=== PATIENT | female | born 1950 | race Caucasian/White ===

== ENCOUNTER 2017-11-20 22:53 | Inpatient (IN) | payer MEDICARE, MEDICAID ==
[~2017-11-20] VITALS: Ht 157.5 cm; Wt 66.2 kg
--- NOTE | 2017-11-20 22:55 | NUR ---
[facility], NEIGHBORS CALLED 911, SAW PT SITTING OUTSIDE IN COLD DENIES ANY MEDICAL COMPLAINTS, BG 111 IN FIELD, NAD NOTED, VSS, RESP EVEN AND UNLABORED, SKIN WARM AND DRY, PT PUT ON MONITOR. AT FOR RENAE.
--- NOTE | 2017-11-20 23:28 | NUR ---
PT TO CTSCAN
[2017-11-20 23:32] LABS: BASOPHILS % (AUTO) 0.3 % (0.0-2.0); EOSINOPHILS # (AUTO) 0.1 /CMM (0.0-0.7); HEMATOCRIT 46 % (33-45); HEMOGLOBIN 14.6 g/dL (11.5-14.8); LYMPHOCYTES # (AUTO) 2.2 /CMM (0.8-4.8); MEAN CORPUSCULAR HEMOGLOBIN 26 PG (26.0-33.0); MEAN CORPUSCULAR HGB CONC 32 g/dl (31.0-36.0); MEAN CORPUSCULAR VOLUME 83 fL (82-100); MONOCYTES # (AUTO) 0.6 /CMM (0.1-1.30); MONOCYTES % (AUTO) 5.8 % (2.0-12.0); NEUTROPHILS # (AUTO) 7.7 /CMM (1.8-8.9); NEUTROPHILS % (AUTO) 71.9 % (43.0-81.0); PLATELET COUNT (AUTO) 225 /CMM (150-450); RDW COEFFICIENT OF VARIATION 16.8 (11.5-15.0); RED BLOOD CELL COUNT(AUTO) 5.52 MIL/uL (4.0-5.2); WHITE BLOOD COUNT (AUTO) 10.6 K/uL (4.3-11.0)
[2017-11-20 23:44] LABS: CARBON DIOXIDE 29 mmol/L (21-32); CHLORIDE 100 mmol/L (98-107); CREATININE 1.2 mg/dL (0.6-1.3); GLUCOSE 116 mg/dL (74-106); POTASSIUM 4.5 mmol/L (3.5-5.1); SODIUM SERUM 135 mmol/L (136-145); UREA NITROGEN, BLOOD 17 mg/dL (7-18)
--- NOTE | 2017-11-20 23:45 | NUR ---
JAMMIE ALEXANDER [phone], NEIGHBOR CALLED INQUIRING ON PT STATUS. PER PT REQUEST, UPDATE PT NEIGHBOR ON STATUS.
[2017-11-20 23:50] LABS: ACETAMINOPHEN 0 ug/ml (10-30); ALANINE AMINOTRANSFERASE 39 U/L (12-78); ALCOHOL, BLOOD < 3 mg/dL (0-0); ALKALINE PHOSPHATASE 102 U/L (46-116); ASPARTATE AMINOTRANSFERASE 25 U/L (15-37); BILIRUBIN,DIRECT 0.1 mg/dL (0.0-0.2); BILIRUBIN,TOTAL 0.6 mg/dL (0.2-1.0); TOTAL PROTEIN, SERUM 7.5 g/dL (6.4-8.2)
[2017-11-20 23:54] LABS: TROPONIN I < 0.017 ng/mL (0.00-0.056)
--- NOTE | 2017-11-21 00:21 | NUR ---
CALLED RADIOLOGY AND SPOKE WITH DAVI; ASKED TO GET PT FOR CT CHEST STUDY
[2017-11-21 00:25] LABS: APPEARANCE,URINE CLEAR (CLEAR); BILIRUBIN,URINE NEGATIVE (NEGATIVE); BLOOD, URINE NEGATIVE Ery/uL (NEGATIVE); COLOR,URINE YELLOW (YELLOW); KETONES,URINE NEGATIVE (NEGATIVE); LEUKOCYTE ESTERASE ,URINE NEGATIVE (NEGATIVE); NITRITE, URINE NEGATIVE (NEGATIVE); PH,URINE 5.5 (5.0-8.0); PROTEIN,URINE NEGATIVE (NEGATIVE); UGLUCOSE NEGATIVE (NEGATIVE); UROBILINOGEN,URINE 0.2 EU/dL (0.2)
[2017-11-21] MEDS ORDERED: IOHEXOL-300 100 ML VIAL IV ONE (00:29)
[2017-11-21] MEDS ORDERED: CT SWABBABLE VALVE TRANS SET 1 EA INFUS.SET MC ONE (00:30)
[2017-11-21] MEDS ORDERED: IV NS 0.9% 250 ML IV ONE (00:30)
--- NOTE | 2017-11-21 02:16 | NUR ---
pt asleep, no acute distress noted, resp even and unlabored. call light wihtin reach. will continue to monitor pt closely.
--- NOTE | 2017-11-21 02:25 | NUR ---
pt confused at this time.
--- NOTE | 2017-11-21 02:25 | NUR ---
pt agitated, screaming, uncooperative, er md made aware.
[2017-11-21] MEDS ORDERED: OLANZAPINE 10 MG VIAL IM ONE ×2 (02:28→02:30)
--- NOTE | 2017-11-21 02:31 | NUR ---
pt medicated as ordered.
--- NOTE | 2017-11-21 02:35 | NUR ---
ART CALLED FOR EVAL.
--- NOTE | 2017-11-21 03:28 | NUR ---
ERASTO HARPERW AT BEDSIDE TO RENAE VOSS.
--- NOTE | 2017-11-21 03:29 | NUR ---
PT CONSTALY SCREAMING, PT HALUCINATING, PT CONFUSED. ER MD MADE AWARE WITH ORDERS RECEIVED.
[2017-11-21] MEDS ORDERED: LORAZEPAM INJ 2 MG/ML VIAL ONE (03:30)
[2017-11-21] MEDS ORDERED: LORAZEPAM INJ 2 MG/ML VIAL IV ONE (03:30)
--- NOTE | 2017-11-21 03:34 | NUR ---
PT MEDICATED BY RN PER ER MD ORDER.
--- NOTE | 2017-11-21 04:12 | NUR ---
REPORT CALLED TO HARI CABAN. WILL TRANSPORT PT.
--- NOTE | 2017-11-21 04:45 | NUR ---
IV removed. Catheter intact and site benign. Pressure and 4x4 applied to site. No bleeding noted.
[2017-11-21 05:00] VITALS: BP_SYST 124; BP_SYST 127; BP_DIAS 81
[2017-11-21] MEDS ORDERED: MAG HYDROX/AL HYDROX/SIMETH 30 ML UDC PO PRN (05:30)
[2017-11-21] MEDS ORDERED: ACETAMINOPHEN 325 MG TABLET PO PRN (05:30)
[2017-11-21] MEDS ORDERED: MAGNESIUM HYDROXIDE 30 ML UDC PO PRN (05:30)
[2017-11-21 08:00] VITALS: BP 110/60
[2017-11-21 08:10] VITALS: BP 110/60
[2017-11-21] MEDS ORDERED: LISI10TA5 PO (09:35)
[2017-11-21] MEDS ORDERED: TRAM50TA2 PO (09:35)
[2017-11-21] MEDS ORDERED: TIZA2TAB4 PO (09:35)
[2017-11-21] MEDS ORDERED: ATOR10TA PO (09:35)
[2017-11-21] MEDS ORDERED: CHOL100044 PO (09:35)
[2017-11-21] MEDS ORDERED: BECL8.7A6 IH (09:35)
[2017-11-21] MEDS ORDERED: OMEP40CA37 PO (09:35)
[2017-11-21] MEDS ORDERED: DULO60CA45 PO (09:35)
[2017-11-21] MEDS ORDERED: HYDR-548 PO (09:35)
--- NOTE | 2017-11-21 10:55 | NUR ---
Initial Discharge Plan: Patient [place] alone [place] [address] [place] [address] / [phone]. Patient lives alone and wants to return there after discharge. SW discussed alternative placement with patient, but she did not wish to engage in that conversation. SW to follow up with MD and to facilitate a safe and proper discharge. Addendum: 11/21/17 at 1056 by RAHEEM BURGOS Please note that upon assessment, patient denied suicidal and homicidal ideation. Patient reported that she is not experiencing visual or auditory hallucinations.
[2017-11-21] MEDS ORDERED: TRAMADOL HCL 50 MG TABLET PO PRN (14:00)
[2017-11-21 16:07] VITALS: BP 123/86
[2017-11-21] MEDS ORDERED: BECLOMETHASONE DIPROPIONATE INH SCH (17:00)
[2017-11-21] MEDS: clonazePAM 0.5 MG TABLET PO PRN ×2 (17:28→23:18)
--- NOTE | 2017-11-21 17:28 | NUR ---
RN NOTES ADMINISTERED KLONOPIN 0.5 MG PO PRN FOR ANXIETY, PARANOIA, V/S TAKEN BP-123/86, P-98, CONTINUED MONITORING.
[2017-11-21] MEDS: QUETIAPINE FUMARATE 25 MG TABLET PO SCH (18:40)
[2017-11-21 20:00] VITALS: BP 126/86
--- NOTE | 2017-11-21 20:12 | NUR ---
PATIENT IS AT THE HALLWAY, AWAKE AND CONFUSED, HAS FLIGHT OF IDEAS, TALKS ON DIFFERENT THINGS.
--- NOTE | 2017-11-21 23:18 | NUR ---
Patient is labile, not sleeping, clonazepam 0.5 mg tab 1 po given.
[2017-11-21] MEDS: TEMAZEPAM 7.5 MG CAPSULE PO PRN (23:40)
--- NOTE | 2017-11-21 23:46 | NUR ---
PATIENT REFUSED TO TAKE RESTORIL 7.5 MG 1 CAP. PO. MED. WASTED WITH ANOTHER RN, LEANA
[2017-11-22] MEDS ORDERED: OLANZAPINE 10 MG VIAL IM ONE ×2 (00:30)
--- NOTE | 2017-11-22 00:36 | NUR ---
PATIENT LABILE, HYPERVERBAL, ELATED, YELLING, SCREAMING, NOT SLEEPING, DOES NOT FOLLOW DIRECTIONS, COMBATIVE, AGGRESSIVE, VERY CONFUSED, RESPONDING TO INTERNAL STIMULI, CALLING NAMES ALFONSO WILEY MICHAEL, ZYPREXA 5 MG IM ADMINISTERED RIGHT ARM. PATIENT WAS PUT BACK TO HER BED.
[2017-11-22] MEDS ORDERED: HALOPERIDOL LACTATE INJ 5 MG/ML VIAL ONE (02:24)
[2017-11-22] MEDS ORDERED: BENZTROPINE MESYLATE (2MG/2ML) 2 MG/2 ML AMPUL ONE (02:25)
[2017-11-22] MEDS ORDERED: LORAZEPAM INJ 2 MG/ML VIAL ONE (02:27)
[2017-11-22] MEDS ORDERED: LORAZEPAM INJ 2 MG/ML VIAL IM ONE (02:30)
[2017-11-22] MEDS ORDERED: HALOPERIDOL LACTATE INJ 5 MG/ML VIAL IM ONE (02:30)
[2017-11-22] MEDS ORDERED: BENZTROPINE MESYLATE (2MG/2ML) 2 MG/2 ML AMPUL IM ONE (02:30)
--- NOTE | 2017-11-22 02:42 | NUR ---
ZYPREXA 5 MG IM WAS NOT EFFECTIVE AFTER IT WAS GIVEN EARLIER. DR. HDZ WAS CALLED AND NOTIFIED ABOUT PATIENT'S CURRENT BEHAVIOR, BEING VERY LOUD, SCREAMING, YELLING, COMBATIVE, AGGRESSIVE, RESPONDS TO INTERNAL STIMULI, CALLING OUT NAMES, ATTEMPTS TO HIT STAFF. ATTEMPTS TO GET OUT OF THE PINKY-CHAIR WITH ALL HER STRENGTH AND MIGHT, USING HER HANDS, ARMS, PATIENT SUSTAINED SOME BRUISES AND SKIN DISCOLORATION, RN WELCOME CENTER AGENT AWARE AND OBSERVED PATIENT'S BEHAVIOR. MD ORDERED MEDICATIONS. ATIVAN 1 MG, COGENTIN 2 MG, HALDOL 5 MG IM ADMINISTERED.
[2017-11-22] MEDS ORDERED: Medication Not On Formulary EA (Omeprazole 40 MG) PO SCH (07:30)
[2017-11-22 08:15] VITALS: BP 125/75
[2017-11-22] MEDS ORDERED: DULOXETINE HCL 30 MG CAPSULE.DR PO SCH (09:00)
[2017-11-22] MEDS: LISINOPRIL (10MG) 10 MG TABLET PO SCH (09:29)
[2017-11-22] MEDS: PANTOPRAZOLE 40 MG TABLET.DR PO SCH (09:29)
[2017-11-22] MEDS: CHOLECALCIFEROL 1,000 UNIT TABLET (VIT D3) PO SCH (09:29)
[2017-11-22] MEDS: ATORVASTATIN 10 MG TABLET PO SCH (09:30)
[2017-11-22] MEDS: QUETIAPINE FUMARATE 25 MG TABLET PO SCH (09:30)
[2017-11-22 10:18] LABS: BASOPHILS % (AUTO) 0.1 % (0.0-2.0); EOSINOPHILS % (AUTO) 0.1 % (0.0-6.0); HEMATOCRIT 44 % (33-45); HEMOGLOBIN 14.2 g/dL (11.5-14.8); LYMPHOCYTES # (AUTO) 1.6 /CMM (0.8-4.8); LYMPHOCYTES % (AUTO) 13.6 % (20.0-44.0); MEAN CORPUSCULAR HEMOGLOBIN 27 PG (26.0-33.0); MEAN CORPUSCULAR HGB CONC 32 g/dl (31.0-36.0); MEAN CORPUSCULAR VOLUME 82 fL (82-100); MONOCYTES % (AUTO) 8.2 % (2.0-12.0); PLATELET COUNT (AUTO) 274 /CMM (150-450); RDW COEFFICIENT OF VARIATION 16.4 (11.5-15.0); RED BLOOD CELL COUNT(AUTO) 5.35 MIL/uL (4.0-5.2); WHITE BLOOD COUNT (AUTO) 11.6 K/uL (4.3-11.0)
[2017-11-22 10:31] LABS: CHOLESTEROL 199 mg/dL (<200); HDL CHOLESTEROL 119 mg/dL (40-60); LDL 74 mg/dL (0-99); TRIGLYCERIDES 62 mg/dL (30-150)
[2017-11-22 10:33] LABS: ALBUMIN 4.3 g/dL (3.4-5.0); CALCIUM, SERUM 10.1 mg/dL (8.5-10.1); CREATININE 1.1 mg/dL (0.6-1.3); POTASSIUM 4.1 mmol/L (3.5-5.1); TOTAL PROTEIN, SERUM 7.8 g/dL (6.4-8.2)
[2017-11-22] MEDS: OLANZAPINE 5 MG TABLET PO SCH ×2 (12:39→20:30)
[2017-11-22] MEDS: clonazePAM 0.5 MG TABLET PO PRN (12:40)
[2017-11-22 16:13] VITALS: BP 111/77
[2017-11-22 20:00] VITALS: BP 103/66
[2017-11-22] MEDS: TEMAZEPAM 7.5 MG CAPSULE PO PRN (20:52)
[2017-11-23] MEDS: HYDROCODONE/APAP 10/325MG 1 EA TABLET PO PRN ×2 (02:31→20:53)
[2017-11-23 08:00] VITALS: BP 105/71
[2017-11-23] MEDS: LISINOPRIL (10MG) 10 MG TABLET PO SCH (09:00)
[2017-11-23] MEDS: ATORVASTATIN 10 MG TABLET PO SCH (09:11)
[2017-11-23] MEDS: PANTOPRAZOLE 40 MG TABLET.DR PO SCH (09:11)
[2017-11-23] MEDS: clonazePAM 0.5 MG TABLET PO PRN (09:11)
[2017-11-23] MEDS: CHOLECALCIFEROL 1,000 UNIT TABLET (VIT D3) PO SCH (09:11)
--- NOTE | 2017-11-23 09:11 | NUR ---
[id number]: GAVE KLONOPIN 0.5 MG PO DUE TO SEVERE ANXIETY UPON PT REQUEST AND WILL CONTINUE TO MONITOR FOR EFFECTIVENESS OF MEDICATION
[2017-11-23] MEDS: OLANZAPINE 5 MG TABLET PO SCH ×2 (09:14→20:02)
[2017-11-23 16:13] VITALS: BP 147/78
[2017-11-23 20:06] VITALS: BP 126/83
[2017-11-23] MEDS: TEMAZEPAM 7.5 MG CAPSULE PO PRN (23:50)
[2017-11-24] MEDS: HYDROCODONE/APAP 10/325MG 1 EA TABLET PO PRN ×3 (03:55→19:54)
[2017-11-24] MEDS: clonazePAM 0.5 MG TABLET PO PRN ×3 (06:58→22:54)
--- NOTE | 2017-11-24 06:59 | NUR ---
GPS RN NOTES: PATIENT IS ANXIOUS. PT IS REQUESTING FOR KLONOPIN. VITAL SIGNS ARE STABLE. KLONOPIN 0.5MG PO GIVEN PRN ORDER. WILL CONTINUE TO MONITOR.
[2017-11-24] MEDS: PANTOPRAZOLE 40 MG TABLET.DR PO SCH (07:30)
[2017-11-24 08:00] VITALS: BP 123/74
[2017-11-24] MEDS: CHOLECALCIFEROL 1,000 UNIT TABLET (VIT D3) PO SCH (09:13)
[2017-11-24] MEDS: LISINOPRIL (10MG) 10 MG TABLET PO SCH (09:13)
[2017-11-24] MEDS: Z GUARD REMEDY 2 OZ OINT TP SCH ×2 (09:14→21:14)
[2017-11-24] MEDS: ATORVASTATIN 10 MG TABLET PO SCH (09:14)
[2017-11-24] MEDS: OLANZAPINE 5 MG TABLET PO SCH ×2 (09:14→21:10)
[2017-11-24 16:00] VITALS: BP 108/60
[2017-11-24] MEDS: TEMAZEPAM 7.5 MG CAPSULE PO PRN ×2 (21:12→22:57)
[2017-11-24 21:54] VITALS: BP 99/50
[2017-11-25] MEDS: HYDROCODONE/APAP 10/325MG 1 EA TABLET PO PRN ×2 (04:52→21:46)
[2017-11-25] MEDS: PANTOPRAZOLE 40 MG TABLET.DR PO SCH (07:30)
[2017-11-25 08:00] VITALS: BP 122/70
[2017-11-25] MEDS: LISINOPRIL (10MG) 10 MG TABLET PO SCH (09:37)
[2017-11-25] MEDS: OLANZAPINE 5 MG TABLET PO SCH ×2 (09:38→21:44)
[2017-11-25] MEDS: ATORVASTATIN 10 MG TABLET PO SCH (09:38)
[2017-11-25] MEDS: CHOLECALCIFEROL 1,000 UNIT TABLET (VIT D3) PO SCH (09:48)
[2017-11-25] MEDS: Z GUARD REMEDY 2 OZ OINT TP SCH ×2 (09:49→21:47)
[2017-11-25] MEDS: clonazePAM 0.5 MG TABLET PO PRN (14:02)
[2017-11-25 16:17] VITALS: BP 131/77
[2017-11-25 20:01] VITALS: BP 100/61
[2017-11-26] MEDS: TEMAZEPAM 7.5 MG CAPSULE PO PRN ×2 (00:15→22:43)
[2017-11-26] MEDS: clonazePAM 0.5 MG TABLET PO PRN ×3 (01:33→20:58)
[2017-11-26] MEDS: PANTOPRAZOLE 40 MG TABLET.DR PO SCH (07:30)
[2017-11-26 08:00] VITALS: BP 147/94
[2017-11-26 08:14] LABS: CALCIUM, SERUM 10.1 mg/dL (8.5-10.1); CREATININE 0.9 mg/dL (0.6-1.3)
[2017-11-26 08:17] LABS: BASOPHILS % (AUTO) 0.4 % (0.0-2.0); EOSINOPHILS # (AUTO) 0.2 /CMM (0.0-0.7); EOSINOPHILS % (AUTO) 3.3 % (0.0-6.0); HEMATOCRIT 41 % (33-45); HEMOGLOBIN 13.6 g/dL (11.5-14.8); LYMPHOCYTES # (AUTO) 2.8 /CMM (0.8-4.8); LYMPHOCYTES % (AUTO) 40.1 % (20.0-44.0); MEAN CORPUSCULAR HEMOGLOBIN 27 PG (26.0-33.0); MEAN CORPUSCULAR HGB CONC 33 g/dl (31.0-36.0); MEAN CORPUSCULAR VOLUME 82 fL (82-100); MONOCYTES # (AUTO) 0.6 /CMM (0.1-1.30); MONOCYTES % (AUTO) 9.1 % (2.0-12.0); NEUTROPHILS # (AUTO) 3.2 /CMM (1.8-8.9); NEUTROPHILS % (AUTO) 47.1 % (43.0-81.0); PLATELET COUNT (AUTO) 241 /CMM (150-450); RDW COEFFICIENT OF VARIATION 16.5 (11.5-15.0); RED BLOOD CELL COUNT(AUTO) 4.98 MIL/uL (4.0-5.2); WHITE BLOOD COUNT (AUTO) 6.9 K/uL (4.3-11.0)
[2017-11-26] MEDS: ATORVASTATIN 10 MG TABLET PO SCH (09:46)
[2017-11-26] MEDS: LISINOPRIL (10MG) 10 MG TABLET PO SCH (09:46)
[2017-11-26] MEDS: CHOLECALCIFEROL 1,000 UNIT TABLET (VIT D3) PO SCH (09:47)
[2017-11-26] MEDS: OLANZAPINE 5 MG TABLET PO SCH ×2 (09:47→20:58)
[2017-11-26] MEDS: FLUTICASONE/VILANTEROL 1 EACH BLST.W.DEV IH SCH (09:48)
[2017-11-26] MEDS: Z GUARD REMEDY 2 OZ OINT TP SCH ×2 (09:50→21:13)
--- NOTE | 2017-11-26 12:35 | NUR ---
RN-CO: Patient attended the Probable Cause Hearing, but she stated while in the hearing that it is fine for her to stay in the unit today or as planned. She also added that she is happy here because the staff are all "fair here."
--- NOTE | 2017-11-26 13:48 | NUR ---
RN NOTE : PATIENT C/O ANXIETY MEDICATED WITH KLONOPIN 0.5 MG FOR ANXIETY .
[2017-11-26 15:59] VITALS: BP 125/77
[2017-11-26] MEDS: HYDROCODONE/APAP 10/325MG 1 EA TABLET PO PRN ×2 (17:31→23:50)
--- NOTE | 2017-11-26 17:32 | NUR ---
RN NOTE:PATIENT C/O PAIN MEDICATED WITH NORCO ,WILL CONTINUE TO MONITOR .
[2017-11-26 20:53] VITALS: BP 113/70
[2017-11-26] MEDS: LamoTRIgine 25 MG TABLET PO SCH (22:43)
[2017-11-27 08:00] VITALS: BP 122/72
[2017-11-27] MEDS: CHOLECALCIFEROL 1,000 UNIT TABLET (VIT D3) PO SCH (08:34)
[2017-11-27] MEDS: ATORVASTATIN 10 MG TABLET PO SCH (08:34)
[2017-11-27] MEDS: LISINOPRIL (10MG) 10 MG TABLET PO SCH (08:35)
[2017-11-27] MEDS: TIZANIDINE HCL 4 MG TABLET PO PRN (08:35)
[2017-11-27] MEDS: PANTOPRAZOLE 40 MG TABLET.DR PO SCH (08:35)
[2017-11-27] MEDS: FLUTICASONE/VILANTEROL 1 EACH BLST.W.DEV IH SCH (08:36)
[2017-11-27] MEDS: OLANZAPINE 5 MG TABLET PO SCH ×2 (08:36→21:06)
[2017-11-27] MEDS: Z GUARD REMEDY 2 OZ OINT TP SCH ×2 (09:00→21:00)
[2017-11-27] MEDS: HYDROCODONE/APAP 10/325MG 1 EA TABLET PO PRN ×2 (09:40→21:28)
--- NOTE | 2017-11-27 09:40 | NUR ---
GPS/RN PATIENT REPORTS 08/10 BACK PAIN, ADMINISTERED NORCO PO 10 1 TAB PER PATIENT REQUEST, WILL CONTINUE TO MONITOR.
[2017-11-27] MEDS: clonazePAM 0.5 MG TABLET PO PRN (15:28)
--- NOTE | 2017-11-27 15:30 | NUR ---
GPS/RN PATIENT ANXIOUS, IRRITABLE,RESTLESS, REQUESTED KLONOPIN. ADMINISTERED KLONOPIN 0.5 MG PER PATIENT REQUEST, WILL CONTINUE TO MONITOR.
[2017-11-27 16:00] VITALS: BP 130/60
[2017-11-27 20:00] VITALS: BP 110/71
[2017-11-27] MEDS: LamoTRIgine 25 MG TABLET PO SCH (21:06)
[2017-11-27] MEDS: TEMAZEPAM 7.5 MG CAPSULE PO PRN (21:06)
[2017-11-28 08:00] VITALS: BP 150/100
[2017-11-28] MEDS: CHOLECALCIFEROL 1,000 UNIT TABLET (VIT D3) PO SCH (08:15)
[2017-11-28] MEDS: OLANZAPINE 5 MG TABLET PO SCH (08:15)
[2017-11-28] MEDS: ATORVASTATIN 10 MG TABLET PO SCH (08:15)
[2017-11-28] MEDS: PANTOPRAZOLE 40 MG TABLET.DR PO SCH (08:15)
[2017-11-28] MEDS: TIZANIDINE HCL 4 MG TABLET PO PRN (08:16)
[2017-11-28 08:17] VITALS: BP 150/100
[2017-11-28] MEDS: LISINOPRIL (10MG) 10 MG TABLET PO SCH (08:17)
[2017-11-28] MEDS: FLUTICASONE/VILANTEROL 1 EACH BLST.W.DEV IH SCH (08:17)
[2017-11-28] MEDS: Z GUARD REMEDY 2 OZ OINT TP SCH (09:14)
[2017-11-28] MEDS: HYDROCODONE/APAP 10/325MG 1 EA TABLET PO PRN (09:15)
--- NOTE | 2017-11-28 09:26 | NUR ---
Discharge Note: Patient will be discharged home to [address] [place] [address] / [phone] via taxi transportation arranged by social work program coordinator through [employer] [phone]. Upon discharge, patient was calm, cooperative. Patient denied suicidal and homicidal ideation. Patient denied visual and auditory hallucinations. SW created an appointment with patients spanish professor, Dr. Seymour [id number], [place] [phone] on December 05 at 9:30am. Patient was also referred to psychiatrist Dr. Collado, [address] [address] [phone] Collado provided patient her card and encouraged her to call to make an appointment. Patient was also encouraged to present to [facility] [address] [place] [phone] , for their substance abuse program on December 02 at 10am. Patient was informed that [facility] takes walk-ins before 5pm. Additional resources included [facility] [address] [place] [address] and [place] [id number] [place] [address] [phone]
--- NOTE | 2017-11-28 11:39 | NUR ---
DR. HDZ GAVE AN ORDER TO D/C HOLD AND D/C TODAY AND TO FOLLOW UP WITH PSYCH AND MEDICAL DOCTORS. PT. WITHOUT DISTRESS, DENIES SUICIDAL AND HOMICIDAL. PT. SIGNED THE DISCHARGE PAPERS, BELONGINGS READY AND PICTURES TAKEN FOR THE SKIN ISSUES. KAMILA EUCEDA MADE AWARE OF THE DISCHARGE AND SAID OK FOR DISCHARGE HE WROTE A PRESCRIPTIONS. PT. INSTRUCTED ABOUT THE MEDS TO CONTINUE AT HOME AND VERBALIZES UNDERSTANDING AND INSTRUCTED TO MAKE A FOLLOW UP WITH PSYCH AND MEDICAL DOCTORS AND AGREED.
--- NOTE | 2017-11-28 13:00 | NUR ---
PT. LEFT THE UNIT WITH BELONGINGS AND ESCORTED BY STAFF TO THE LOBBY. LEFT WITHOUT DISTRESS, AMBULATORY AND ON STABLE CONDITION. PT. LFT VIA A TAXI. V/S TAKEN: B-P 124/78, NY 80, RR 18, TEMP. 98.3, OXYGEN SAT 97%.
== END 2017-11-28 13:00 | disposition home or self-care (01) | DRG 885 ==
LOC: ER 22:55 → GPS 11-21 04:14
PROVIDERS: ADMIT Psychiatry & Neurology Psychiatry
DX: F29 Unspecified psychosis not due to a substance or known physiological condition (principal); N17.0 Acute kidney failure with tubular necrosis; F33.3 Major depressive disorder, recurrent, severe with psychotic symptoms; E78.5 Hyperlipidemia, unspecified; F41.9 Anxiety disorder, unspecified; Z73.6 Limitation of activities due to disability; G89.29 Other chronic pain; I10 Essential (primary) hypertension; M19.90 Unspecified osteoarthritis, unspecified site; Z79.899 Other long term (current) drug therapy; F10.21 Alcohol dependence, in remission
CPT/HCPCS: 36415; 70450-TC; 71010-TC; 71260-TC; 80048-TC; 80053-TC; 80061-TC; 80076-TC; 80305; 81000-TC; 82140-TC; 82962-TC; 83605-TC; 84484-TC; 85025-TC; 87040-TC; A4606; G0480; J0515; J1630; J2060; J3490; J7050; Q9967; Z7610

== ENCOUNTER 2018-06-20 17:23 | Emergency (ER) | payer MEDICARE, BC, MEDICAID ==
[~2018-06-20] VITALS: Ht 165.1 cm; Wt 68.0 kg
[~2018-06-20 17:23] MED LIST: ATOR10TA PO; BECL8.7A6 IH; CHOL100044 PO; HYDR-548 PO; LISI10TA5 PO; OMEP40CA37 PO; TIZA2TAB4 PO; TRAM50TA2 PO
[2018-06-20 18:36] VITALS: BP 127/73
[2018-06-20] MEDS ORDERED: MORPHINE SULFATE INJ 2 MG/ML DISP.SYRIN ONE (18:59)
[2018-06-20] MEDS ORDERED: MORPHINE SULFATE INJ 4 MG/ML DISP.SYRIN ONE (19:00)
[2018-06-20] MEDS ORDERED: MORPHINE SULFATE INJ 10 MG/ML DISP.SYRIN IM ONE (19:00)
== END 2018-06-20 19:19 | disposition home or self-care (01) ==
LOC: ER 17:31
DX: M54.12 Radiculopathy, cervical region (principal); G89.29 Other chronic pain; Z98.890 Other specified postprocedural states; Z79.899 Other long term (current) drug therapy
CPT/HCPCS: 96372; 99283; A4606; J2270 ×2; Z7610

== ENCOUNTER 2019-07-27 14:29 | Emergency (ER) | payer MEDICARE, BC ==
[~2019-07-27] VITALS: Ht 160 cm; Wt 65.8 kg
[~2019-07-27 14:29] MED LIST changes: +HYDR-4354 PO; -HYDR-548 PO; -TIZA2TAB4 PO; +TIZA2TAB5 PO
--- NOTE | 2019-07-27 14:40 | NUR ---
PATIENT CAME TO ED WALKIN C/C RT HIP PAIN S/P FALL NOTED PATIENT HAS WALKER PRIOR TO ARRIVAL TO ED
[2019-07-27] MEDS ORDERED: KETOROLAC TROMETHAMINE INJ 30 MG/ML VIAL ONE (15:15)
[2019-07-27] MEDS: KETOROLAC TROMETHAMINE INJ 60 MG/2 ML VIAL IM ONE (15:21)
--- NOTE | 2019-07-27 15:30 | NUR ---
pATIENT AWAKE ALERT NON DISTRESS ABLE TO MAKE HER NEEDS KNOWN MEDICATED FOR RT HIP PAIN
--- NOTE | 2019-07-27 16:19 | NUR ---
PATIENT LEFT THE ROOM PRIOR TO DC HOME INTRUCTION NOTED ABLE TO AMBULATED WITH CANE
[2019-07-27 16:21] VITALS: BP 143/56
--- NOTE | 2019-07-27 16:25 | NUR ---
DR. PERDOMO MADE AWARE PATIENT LEFT PRIOR TO DC HOMEINSTRUCTION
== END 2019-07-27 16:26 | disposition home or self-care (01) ==
LOC: ER 14:29
DX: M16.11 Unilateral primary osteoarthritis, right hip (principal); G89.29 Other chronic pain; Z98.890 Other specified postprocedural states; Z88.8 Allergy status to other drugs, medicaments and biological substances; Z79.899 Other long term (current) drug therapy; W01.198A Fall on same level from slipping, tripping and stumbling with subsequent striking against other object, initial encounter; Y93.89 Activity, other specified; Y92.89 Other specified places as the place of occurrence of the external cause; Y99.8 Other external cause status
CPT/HCPCS: 73502; 96372; 99283; J1885; 72170-TC

== ENCOUNTER 2023-04-06 15:08 | Inpatient (IN) | payer BC, MEDICARE, OTHER ==
[~2023-04-06] VITALS: Ht 154.9 cm; Wt 72.6 kg
[~2023-04-06 15:08] MED LIST changes: +LISI10TA29 PO; -LISI10TA5 PO; +OMEP40CA21 PO; -OMEP40CA37 PO; +TIZA-180 PO; -TIZA2TAB5 PO
--- NOTE | 2023-04-06 15:20 | NUR ---
[id number] home c/o bodyaches, nausea,vomiting and diarrhea since yesterday. admits to drinking "2 tall cans" today. PLACED IN BED, AAOX4, BREATHING EVEN AND UNLABORED SATURATING AT 97%RA, NAUSEATED-VOMITING.
[2023-04-06] MEDS ORDERED: FAMOTIDINE/PF INJ 20 MG/2 ML VIAL IV ONE ×2 (15:24→15:30)
[2023-04-06] MEDS ORDERED: ONDANSETRON HCL/PF 4 MG/2 ML VIAL ONE (15:24)
[2023-04-06] MEDS ORDERED: IV NS 0.9% 1,000 ML BAG IV ONE (15:30)
[2023-04-06] MEDS ORDERED: MORPHINE SULFATE INJ 2 MG/ML DISP.SYRIN IV ONE (15:30)
[2023-04-06] MEDS ORDERED: ONDANSETRON HCL/PF 4 MG/2 ML VIAL IVP ONE (15:30)
--- NOTE | 2023-04-06 15:30 | NUR ---
BLOOD DRAWN AND SENT TO LAB
[2023-04-06] MEDS ORDERED: MORPHINE SULFATE INJ 4 MG/ML DISP.SYRIN ONE (15:45)
[2023-04-06 15:53] LABS: BASOPHILS % (AUTO) 0.2 % (0.0-2.0); EOSINOPHILS % (AUTO) 0.1 % (0.0-6.0); HEMATOCRIT 42 % (33-45); LYMPHOCYTES % (AUTO) 11.6 % (20.0-44.0); MEAN CORPUSCULAR HGB CONC 33 g/dl (31.0-36.0); MEAN CORPUSCULAR VOLUME 91 fL (82-100); MONOCYTES # (AUTO) 0.4 K/uL (0.1-1.30); MONOCYTES % (AUTO) 4.5 % (2.0-12.0); NEUTROPHILS # (AUTO) 7.2 K/uL (1.8-8.9); NEUTROPHILS % (AUTO) 83.6 % (43.0-81.0); PLATELET COUNT (AUTO) 183 K/uL (150-450); RED BLOOD CELL COUNT(AUTO) 4.64 MIL/uL (4.0-5.2); WHITE BLOOD COUNT (AUTO) 8.6 K/uL (4.3-11.0)
--- NOTE | 2023-04-06 16:03 | NUR ---
SWAB FOR COVID19 SENT TO LAB
[2023-04-06 16:05] LABS: CALCIUM, SERUM 9.4 mg/dL (8.5-10.1); CREATININE 0.7 mg/dL (0.6-1.3); POTASSIUM 3.6 mmol/L (3.5-5.1)
[2023-04-06 16:11] LABS: BILIRUBIN,DIRECT 0.1 mg/dL (0.0-0.2); BILIRUBIN,TOTAL 0.4 mg/dL (0.2-1.0); TOTAL PROTEIN, SERUM 7.1 g/dL (6.4-8.2)
[2023-04-06] MEDS ORDERED: FLUT1DIS IH (16:31)
[2023-04-06] MEDS ORDERED: [UNRECOGNIZED DRUG - CODE] PO (16:31)
[2023-04-06] MEDS ORDERED: METOCLOPRAMIDE HCL 10 MG/2 ML VIAL ONE (17:11)
[2023-04-06] MEDS ORDERED: METOCLOPRAMIDE HCL 10 MG/2 ML VIAL IV ONE (17:30)
[2023-04-06] MEDS ORDERED: PANTOPRAZOLE 40 MG VIAL IV SCH (19:00)
[2023-04-06] MEDS ORDERED: ONDANSETRON HCL/PF 4 MG/2 ML VIAL IVP PRN (19:00)
[2023-04-06] MEDS ORDERED: IV NS 0.9% 1,000 ML IV PRN (19:00)
[2023-04-06] MEDS ORDERED: ACETAMINOPHEN 325 MG TABLET PO PRN (19:00)
--- NOTE | 2023-04-06 19:07 | NUR ---
pt assigned to 308-1
--- NOTE | 2023-04-06 19:53 | NUR ---
REPORT GIVEN TO PREETI GARCIA ROOM 308-1 FOR OLE
[2023-04-06 20:00] VITALS: BP 162/80
--- NOTE | 2023-04-06 20:05 | NUR ---
RN NOTE; RECEIVED PATIENT FROM ER IN RM 308-1 WITH LILIA STARKEY ABLE TO MAKE NEEDS KNOWN,ON RM AIR SATING 98%,NO SOB/DISTRESS NOTED,AMBULATORY PT WITH STEADY GAIT.PT WAS VOMITING 4X AND STATED SHE NAUSEATED,PRN ZOFRAN 4MG INJ,WAS GIVEN NO A/R NOTED,PT WAS ORIENT THE RM AND VERBALLY ORIENTED,SAFETY MEASURE IN PLACE,CALL LIGHT WITHIN REACH,WILL CONTINUE TO MONITOR.
[2023-04-06] MEDS: ENOXAPARIN SODIUM 40 MG/0.4 ML DISP.SYRIN SQ SCH (21:10)
[2023-04-06] MEDS: HYDROCODONE/APAP 5/325MG TABLET PO PRN (21:44)
--- NOTE | 2023-04-06 21:44 | NUR ---
RN NOTE; PATIENT COMPLAINED OF RT ARM PAIN 06/09.PRN NORCO 5-325MG PO,WAS GIVEN.
[2023-04-06] MEDS: LORAZEPAM INJ 2 MG/ML VIAL IV PRN (23:33)
--- NOTE | 2023-04-06 23:33 | NUR ---
RN NOTE; PATIENT NOTED VERY ANXIOUS AND AGITATION,PRN ATIVAN 2MG WAS GIVEN.
[2023-04-07] MEDS: MORPHINE SULFATE INJ 2 MG/ML DISP.SYRIN IV PRN ×4 (01:31→21:50)
--- NOTE | 2023-04-07 01:31 | NUR ---
RN NOTE; PT COMPLAINED OF RT ARM PAIN 08/10.PRN MORPHINE 2MG WAS GIVEN.
[2023-04-07 06:00] LABS: BASOPHILS % (AUTO) 0.5 % (0.0-2.0); EOSINOPHILS % (AUTO) 0.1 % (0.0-6.0); HEMATOCRIT 38 % (33-45); HEMOGLOBIN 12.9 g/dL (11.5-14.8); LYMPHOCYTES # (AUTO) 1.1 K/uL (0.8-4.8); LYMPHOCYTES % (AUTO) 16.4 % (20.0-44.0); MEAN CORPUSCULAR HGB CONC 34 g/dl (31.0-36.0); MEAN CORPUSCULAR VOLUME 92 fL (82-100); MONOCYTES # (AUTO) 0.4 K/uL (0.1-1.30); MONOCYTES % (AUTO) 6.2 % (2.0-12.0); NEUTROPHILS # (AUTO) 5.2 K/uL (1.8-8.9); NEUTROPHILS % (AUTO) 76.8 % (43.0-81.0); PLATELET COUNT (AUTO) 153 K/uL (150-450); RED BLOOD CELL COUNT(AUTO) 4.12 MIL/uL (4.0-5.2); WHITE BLOOD COUNT (AUTO) 6.8 K/uL (4.3-11.0)
[2023-04-07] MEDS: LORAZEPAM INJ 2 MG/ML VIAL IV PRN (06:03)
[2023-04-07 06:20] LABS: CALCIUM, SERUM 8.9 mg/dL (8.5-10.1); CREATININE 0.7 mg/dL (0.6-1.3); MAGNESIUM 1.9 mg/dL (1.8-2.4); PHOSPHORUS 3.1 mg/dL (2.5-4.9); POTASSIUM 3.6 mmol/L (3.5-5.1)
--- NOTE | 2023-04-07 06:43 | NUR ---
RN CLOSING NOTE; PATIENT IN BED AWAKED AOX4 ABLE TO MAKE NEEDS KNOWN,ON RM AIR SATING 97%,NO SOB/DISTRESS NOTED,COMPLAIN OF RT ARM PAIN AND ANXIETY DURING SHIFT,PRN NORCO,MORPHINE,ATIVAN WAS GIVEN,NO A/R NOTED,PT AMBULATORY WITH STEADY GAIT,ALL NEED ATTENDED,SAFETY MEASURE IN PLACE,CALL LIGHT WITHIN REACH,WILL ENDORSED TO NEXT SHIFT.
--- NOTE | 2023-04-07 07:00 | NUR ---
MS RN OPENING NOTES: RECEIEVED PT IN BED ASLEEP,EASILY AROUSED WITH STIMULI. A/O X4 AND ABLE TO MAKE NEEDS KNOWN. NO SOB OR CARDIAC DISTRESS NOTED. ON ROOM AIR AND TOLERATING WELL. IVACCESS ONLAC GAUGE 20 PATENT, INTACT AND INFUSING NS 1L@75ML/HR. SAFETY MEASURES MAINTAINED, BED LOCKED AND IN LOWEST POSITION, SIDE RAILS UP X 2. CALL LIGHT IN EASY REACH AND WILL MONITOR PT ACCORDINGLY.
[2023-04-07 08:00] VITALS: BP_SYST 116; BP_SYST 160; BP_DIAS 80; BP_DIAS 84
[2023-04-07] MEDS: PANTOPRAZOLE 40 MG/PACK PACK PO SCH (09:27)
[2023-04-07] MEDS: CHLORDIAZEPOXIDE HCL 25 MG CAPSULE PO SCH ×2 (12:56→20:32)
[2023-04-07] MEDS: ENSURE CLEAR 237 ML LIQUID (MIX BERRY) PO SCH ×2 (13:07→17:05)
[2023-04-07 16:00] VITALS: BP 116/78
[2023-04-07] MEDS: HYDROCODONE/APAP 5/325MG TABLET PO PRN ×2 (17:05→23:58)
--- NOTE | 2023-04-07 18:40 | NUR ---
RN NOTES: LAC GAUGE 20 DISLODGED REINSERTED IV ACCESS ON LEFT WRIST GAUGE 22.
--- NOTE | 2023-04-07 18:56 | NUR ---
MS RN CLOSING NOTES: PT IN BED AA/O X4 AND ABLE TO MAKE NEEDS KNOWN. NO SOB OR CARDIAC DISTRESS NOTED. ON ROOM AIR AND TOLERATING WELL. IV ACCESS ON LEFT WRIST GAUGE 22 PATENT, INTACT AND INFUSING NS 1L@75ML/HR.ON PAIN MANAGEMENT ORDERED. NO NAUSEA AND VOMITING, EPISODES OF BM X 2. SAFETY MEASURES MAINTAINED, BED LOCKED AND IN LOWEST POSITION, SIDE RAILS UP X 2. CALL LIGHT IN EASY REACH AND WILL MONITOR PT ACCORDINGLY. ENDORSE TO ATTORNEY RECRUITER FOR CONTINUITY OF CARE.
--- NOTE | 2023-04-07 19:30 | NUR ---
MS RN OPENING NOTE RECEIVED PATIENT FROM AM NURSE; PATIENT IS A/O X 4, ABLE TO MAKE NEEDS KNOWN; STABLE ON ROOM AIR, BREATHING EVENLY AND NO S/S OF DISTRESS NOTED; WITH IV ACCESS ON LEFT WRIST G@22; PATIENT IS AMBULATORY WITH BRP; NOTED WITH RIGHT ARM SLING; ENCOURAGED VERBALIZATION OF NEEDS; SAFETY MEASURES IMPLEMENTED, BED LOCKED IN LOWEST POSITON, SIDE RAILS UP X2, CALL LIGHT AND TABLE WITHIN REACH; WILL CONTINUE TO MONITOR THROUGHOUT SHIFT
[2023-04-07 20:00] VITALS: BP 167/86
[2023-04-07] MEDS: ENOXAPARIN SODIUM 40 MG/0.4 ML DISP.SYRIN SQ SCH (20:33)
--- NOTE | 2023-04-07 22:15 | NUR ---
MS RN NOTE PATIENT COMPLAINED OF PAIN AND ASKED FOR MORPHINE; ADMINISTERED MORPHINE 2MG IV, PATIENT TOLERATED WELL
--- NOTE | 2023-04-07 22:30 | NUR ---
MS RN NOTE PATIENT VERBALIZED "THEY WEREN'T ABLE TO INSERT THE IV INTO THE RIGHT SPOT", CHECKED PATIENT'S IV ACCESS, FLUSHED WITH NORMAL SALINE BUT THERE'S NO INFILTRATION OR PHLEBITIS NOTED; PATIENT THEN VERBALIZED "THEY HAD HARD TIME INSERTING AN IV EARLIER BUT I WILL NOT ALLOW ANYONE TO POKE ME AGAIN". PATIENT ASKED TO UNHOOK HER IV FLUID.
[2023-04-08] MEDS: MORPHINE SULFATE INJ 2 MG/ML DISP.SYRIN IV PRN ×3 (03:57→13:52)
--- NOTE | 2023-04-08 04:00 | NUR ---
MS RN NOTE PATIENT VERBALIZED THAT SHE ACCIDENTALLY PUT PRESSURE ON HER ARM WHILE SLEEPING THUS MAKING IT PAINFUL; ASKED FOR ANOTHER DOSE OF MORPHINE; ADMINISTERED MORPHINE PRN ORDERED; PATIENT TOLERATED WELL
[2023-04-08] MEDS: CHLORDIAZEPOXIDE HCL 25 MG CAPSULE PO SCH ×3 (05:07→20:04)
--- NOTE | 2023-04-08 06:15 | NUR ---
MS RN NOTE PATIENT STARTED TO FEEL ANXIOUS AND AGITATED, BECOMING AGGRESSIVE AND BANGING THE DOOR AND CLOSET; TRIED TO CALM THE PATIENT DOWN AND PATIENT WAS ASKING FOR SOME OTHER MEDICATION TO CALM HER DOWN; HOSPITALIST MADE AWARE. AWAITING RESPONSE
[2023-04-08] MEDS: HYDROCODONE/APAP 5/325MG TABLET PO PRN ×3 (06:31→20:05)
--- NOTE | 2023-04-08 07:15 | NUR ---
MS RN CLOSING NOTE PATIENT IS A/O X 4, ABLE TO MAKE NEEDS KNOWN; STABLE ON ROOM AIR, BREATHING EVENLY AND NO S/S OF DISTRESS NOTED; WITH IV ACCESS ON LEFT WRIST G@22, INTACT AND PATENT; PATIENT IS AMBULATORY WITH BRP; NOTED WITH RIGHT ARM SLING; ADMINISTERED MEDICATIONS PRESCRIBED; PATIENT'S NEEDS ATTENDED; MONITORED PATIENT ACCORDINGLY; SAFETY MEASURES IMPLEMENTED, BED LOCKED IN LOWEST POSITON, SIDE RAILS UP X2, CALL LIGHT AND TABLE WITHIN REACH; WILL ENDORSE TO AM NURSE FOR OLE.
--- NOTE | 2023-04-08 07:25 | NUR ---
MS RN OPENING NOTE Received pt in bed, awake, anxious and verbally abusive. A/O x 4, able to make needs known. On room air, tolerating well. IV access in the left wrist #22g, sl. With sling in the right arm. Safety measures in place: bed locked and in lowest position, side rails up x 2, call light and tray table within easy reach. Will continue to monitor.
[2023-04-08 08:00] VITALS: BP 142/81
[2023-04-08] MEDS: ENSURE CLEAR 237 ML LIQUID (MIX BERRY) PO SCH ×3 (08:00→17:11)
[2023-04-08] MEDS ORDERED: FLUTICASONE/SALMETEROL 1 DISK IH SCH (08:30)
[2023-04-08] MEDS: PANTOPRAZOLE 40 MG/PACK PACK PO SCH ×2 (08:38→08:45)
--- NOTE | 2023-04-08 08:45 | NUR ---
RN NOTE Patient verbalized her right arm is painful with scale of 9/10, Morphine 4mg IV prn given at 0839. Will continue to monitor.
--- NOTE | 2023-04-08 13:55 | NUR ---
RN NOTE Patient verbalized her right arm is painful with scale of 8/10, Morphine 4mg IV prn given at 1352. Will continue to monitor.
--- NOTE | 2023-04-08 14:00 | NUR ---
RN NOTE Pt verbalized her vagina is burning and itchy. Per assessment, it has redness and rasher in surrounding area. MD made aware, ordered wound consult.
--- NOTE | 2023-04-08 14:26 | NUR ---
RN NOTE Patient c/o burning in IV site, observed leakage in IV line. Removed IV. Pt refused IV insertion despite explaining the benefits of IV access and risk of not having IV access. Will continue to monitor.
--- NOTE | 2023-04-08 15:50 | NUR ---
RN NOTE Patient verbalized her right arm is painful with scale of 7/10, [place] 5/325mg tab po prn given at 1548. Will continue to monitor.
[2023-04-08 16:00] VITALS: BP 137/86
--- NOTE | 2023-04-08 16:45 | NUR ---
RN NOTE Patient still refuse IV insertion, despite further explaining the need for IV access.
[2023-04-08] MEDS ORDERED: ATORVASTATIN 10 MG TABLET PO SCH (18:00)
--- NOTE | 2023-04-08 18:40 | NUR ---
MS RN CLOSING NOTE Pt resting in bed, awake. A/O x 4, able to make needs known. On room air, tolerating well. No IV access, pt refused reinsertion several times. With sling in the right arm. Needs attended. Safety measures in place: bed locked and in lowest position, side rails up x 2, call light and tray table within easy reach. Will endorse [facility]ital to [facility] shift.
[2023-04-08] MEDS: ALBUTEROL FS 2.5 MG/0.5 ML VIAL.NEB NEB SCH (19:30)
[2023-04-08] MEDS: BUDESONIDE RESPULE INH 0.5 MG/2 ML AMPUL.NEB NEB SCH ×2 (19:30→19:40)
--- NOTE | 2023-04-08 19:30 | NUR ---
MS RN OPENING NOTE RECEIVED PATIENT IN BED, ASLEEP BUT EASY TO AROUSE AND RESPONSIVE. AFEBRILE AND NOT IN ANY FORM OF ACUTE DISTRESS. BREATHING EVEN AND NON LABORED. NO C/O PAIN OR DISCOMFORT AT THIS TIME. PATIENT REFUSED IV INSERTION PER REPORT. SAFETY MEASURES IN PLACE. KEPT BED IN LOCKED AND IN LOW POSITION. SIDE RAILS UP X2. ADVISED TO USE THE CALL LIGHT WHEN IN NEED OF ASSISTANCE.
[2023-04-08] MEDS: ENOXAPARIN SODIUM 40 MG/0.4 ML DISP.SYRIN SQ SCH (20:04)
[2023-04-08 20:43] VITALS: BP 141/86
[2023-04-09] MEDS: HYDROCODONE/APAP 5/325MG TABLET PO PRN ×2 (00:47→06:09)
[2023-04-09] MEDS: ALBUTEROL FS 2.5 MG/0.5 ML VIAL.NEB NEB SCH ×3 (02:31→13:06)
[2023-04-09] MEDS: CHLORDIAZEPOXIDE HCL 25 MG CAPSULE PO SCH ×2 (04:01→12:42)
--- NOTE | 2023-04-09 06:20 | NUR ---
MS RN CLOSING NOTE PATIENT IN BED, ASLEEP BUT EASY TO AROUSE AND RESPONSIVE. ABLE TO MAKE NEEDS KNOWN. AFEBRILE AND NOT IN ANY FORM OF ACUTE DISTRESS. BREATHING EVEN AND NON LABORED. PATIENT STILL REFUSED IV INSERTION ON UPPER EXTREMITY BUT PREFERS TO HAVE IT ON LOWER EXTREMITY INSTEAD, MD MADE AWARE. MEDICATED ORDERED. SAFETY MEASURES IN PLACE. KEPT BED IN LOCKED AND IN LOW POSITION. SIDE RAILS UP X2. ADVISED TO USE THE CALL LIGHT WHEN IN NEED OF ASSISTANCE. ALL NURSING NEEDS ATTENDED. ENDORSED TO INCOMING SHIFT FOR CONTINUITY OF CARE.
[2023-04-09 07:00] VITALS: BP 133/75
--- NOTE | 2023-04-09 07:27 | NUR ---
MS RN OPENING NOTE Received pt in bed, awake. A/O x 4, able to make needs known. On room air, tolerating well. No IV access. With sling in the right arm. Safety measures in place: bed locked and in lowest position, side rails up x 2, call light and tray table within easy reach. Will continue to monitor.
[2023-04-09] MEDS: BUDESONIDE RESPULE INH 0.5 MG/2 ML AMPUL.NEB NEB SCH (07:30)
[2023-04-09] MEDS: ENSURE CLEAR 237 ML LIQUID (MIX BERRY) PO SCH ×2 (08:02→12:42)
[2023-04-09] MEDS: PANTOPRAZOLE 40 MG/PACK PACK PO SCH (08:03)
[2023-04-09] MEDS ORDERED: clonazePAM 0.5 MG TABLET PO PRN (09:30)
[2023-04-09] MEDS: HYDROCODONE/APAP 10/325MG TABLET PO PRN ×2 (10:41→15:21)
--- NOTE | 2023-04-09 10:45 | NUR ---
RN NOTE Patient verbalized her right arm is painful and needs her [place], [place] 10/325mg po prn given at 10:41, will continue to monitor.
--- NOTE | 2023-04-09 15:25 | NUR ---
RN NOTE Patient verbalized her right arm is painful and needs her [place], [place] 10/325mg po prn given at 1521, will continue to monitor.
--- NOTE | 2023-04-09 16:18 | NUR ---
MS RADHA SCRUGGS NOTE Received pt in bed, awake. A/O x 4, able to make needs known. On room air, tolerating well. No IV access. With sling in the right arm. Safety measures in place: bed locked and in lowest position, side rails up x 2, call light and tray table within easy reach. Will continue to monitor. Addendum: 04/09/23 at 1619 by Coty Enriquez RN ERROR, PLS DISREGARD
--- NOTE | 2023-04-09 16:20 | NUR ---
MS CONTACT LENS INSPECTOR NOTE Patient discharged to home in stable condition. A/O x 4, ambulatory. No pain/discomfort at this time. On room air, tolerating well. No IV access. With sling in the right arm. Belongings accounted for. Discharge packet and instruction given to pt, verbalized understanding. MD and Charge Nurse aware of discharge. Pt left the unit at 1610 ambulatory.
[2023-04-10] MEDS ORDERED: HYDR-3972 PO (08:01)
== END 2023-04-09 16:05 | disposition home health service (06) | DRG 641 ==
LOC: ER 15:45 → MED 19:22
PROVIDERS: ADMIT Nurse Practitioner Acute Care; ATTEND Nurse Practitioner Acute Care
DX: E86.1 Hypovolemia (principal); D68.59 Other primary thrombophilia; F10.139 Alcohol abuse with withdrawal, unspecified; E87.1 Hypo-osmolality and hyponatremia; Z88.8 Allergy status to other drugs, medicaments and biological substances; Z98.890 Other specified postprocedural states; Z79.51 Long term (current) use of inhaled steroids; Z79.899 Other long term (current) drug therapy; Z20.822 Contact with and (suspected) exposure to COVID-19; E78.5 Hyperlipidemia, unspecified; I10 Essential (primary) hypertension; G89.4 Chronic pain syndrome; M19.90 Unspecified osteoarthritis, unspecified site; F32.A Depression, unspecified; F41.9 Anxiety disorder, unspecified; R62.7 Adult failure to thrive; E66.01 Morbid (severe) obesity due to excess calories; Z68.30 Body mass index [BMI] 30.0-30.9, adult; Z81.8 Family history of other mental and behavioral disorders; S42.251D Displaced fracture of greater tuberosity of right humerus, subsequent encounter for fracture with routine healing; Y90.1 Blood alcohol level of 20-39 mg/100 ml; W54.1XXD Struck by dog, subsequent encounter
CPT/HCPCS: 36415; 73030-TC; 73060-TC; 73200-TC; 80048-TC; 80061-TC; 80076-TC; 83690-TC; 83735-TC; 84100-TC; 85025-TC; 87081-TC; 93930-TC; 97110-TC; 97116-TC; 97530-TC; A4223; C9113; C9803; G0378; G0480; J1650; J2060; J2270; J2405; J2765; J3490; J7030